=== PATIENT | male | born 1995 | race Hispanic/Latino ===

== ENCOUNTER 2021-10-20 09:22 | Emergency (ER) | payer OTHER ==
[2021-10-20] MEDS ORDERED: Famotidine 20 MG TAB ONE (10:50)
[2021-10-20] MEDS ORDERED: Sucralfate 1 GM/10 ML UDCUP ONE (10:51)
[2021-10-20 11:28] LABS: #Eosinphils 0.1 thou/uL (0.0-0.7); #Lymphocytes 2.2 thou/uL (1.20-3.40); #Monocytes 0.5 thou/uL (0.11-0.59); #Neutrophils 2.3 thou/uL (1.40-6.50); %Basophils 0.7 % (0.0-1.0); %Eosinophils 2.1 % (0.0-10.0); %Lymphocytes 42.1 % (21.0-51.0); %Monocytes 9.8 % (0.0-10.0); %Neutrophils 45.4 % (42.0-75.0); Hemoglobin 15.1 g/dL (14.0-18.0); Mean Corpuscular HGB CONC 33.4 g/dL (32.0-36.0); Mean Corpuscular Hemoglobin 30.1 pg (27.0-31.0); Mean Corpuscular Volume 90.2 fL (78.0-98.0); Platelet Count 225 thou/uL (130-400); RBC Distribution Width 11.3 % (11.5-14.5); Red Blood Cell (RBC) Count 5.01 mill/uL (4.70-6.10); White Blood Cell (WBC) Count 5.1 thou/uL (4.8-10.8)
[2021-10-20 11:50] LABS: ALT (SGPT) 104 U/L (8-55); AST (SGOT) 150 U/L (5-34); Albumin 4.2 g/dL (3.5-5.0); Alkaline Phosphatase 57 U/L (40-110); Anion Gap 11 mmol/L (10-20); BUN (Urea Nitrogen) 18 mg/dL (8.9-20.6); Bilirubin, Total 0.7 mg/dL (0.2-1.2); Calc. Creatinine Clearance 0 mL/min (70-130); Calcium 9.2 mg/dL (7.8-10.44); Carbon Dioxide 27 mmol/L (22-29); Chloride 106 mmol/L (98-107); Globulin 2.6 g/dL (2.4-3.5); Glucose 81 mg/dL (70-105); Potassium 4.5 mmol/L (3.5-5.1); Protein, Total 6.8 g/dL (6.0-8.3); Sodium 139 mmol/L (136-145)
== END 2021-10-20 12:09 ==
LOC: ERS 09:22
DX: R07.81 Pleurodynia (principal)
CPT/HCPCS: 36415; 71045; 80053; 84484; 85025; 85379; 93005